=== PATIENT | male | born 1960 | race Caucasian/White ===

== ENCOUNTER 2018-11-04 12:12 | Emergency (ER) | payer OTHER ==
[~2018-11-04] VITALS: Ht 172.7 cm; Wt 81.7 kg
[2018-11-04 12:54] LABS: BASOPHILS ABSOLUTE AUTO 0.04 K/mm3 (0.00-0.23); BASOPHILS PERCENT AUTO 0 % (0-2); EOSINOPHILS ABSOLUTE AUTO 0.07 K/mm3 (0.00-0.68); EOSINOPHILS PERCENT AUTO 1 % (0-6); Hematocrit 46.8 % (37.0-53.0); Hemoglobin 15.6 g/dL (13.5-17.5); IMMATURE GRAN ABSOLUTE AUTO 0.03 K/mm3 (0.00-0.10); IMMATURE GRAN PERCENT AUTO 0 % (0-1); LYMPHOCYTES PERCENT AUTO 9 % (21-46); MONOCYTES ABSOLUTE AUTO 0.61 K/mm3 (0.16-1.47); MONOCYTES PERCENT AUTO 5 % (4-13); Mean Corpuscular HGB 28.6 pg (26.0-34.0); Mean Corpuscular HGB Conc 33.3 g/dL (31.5-36.5); Mean Corpuscular Volume 86 fL (80-100); Mean Platelet Volume 9.6 fL (9.1-12.4); NEUTROPHILS ABSOLUTE AUTO 9.94 K/mm3 (1.96-9.15); NEUTROPHILS PERCENT AUTO 84 % (41-73); Platelet Count 310 K/mm3 (150-400); RDW Coefficient Variation 12.8 % (11.7-14.2); RDW Standard Deviation 39.4 fL (35.1-46.3); Red Blood Cell Count 5.46 M/mm3 (4.30-5.90); White Blood Cell Count 11.79 K/mm3 (4.00-11.30)
[2018-11-04 13:09] LABS: Alanine Aminotransfer (ALT/SGP 15 U/L (12-78); Albumin, Blood 3.2 g/dL (3.4-5.0); Albumin/Globulin Ratio 0.7 (0.8-1.8); Alk Phos 88 U/L (50-136); Anion Gap 6 mmol/L (6-16); Aspartate Aminotrans (AST/SGOT 13 U/L (12-37); Bilirubin, Total 0.6 mg/dL (0.1-1.0); Blood Urea Nitrogen 12 mg/dL (8-24); Bun/Creatinine Ratio 11.7 (12.0-20.0); CO2, Blood 26 mmol/L (21-32); Calcium, Blood 8.7 mg/dL (8.5-10.1); Chloride, Blood 105 mmol/L (98-108); Creatinine, Blood 1.03 mg/dL (0.60-1.20); Globulin, Blood 4.4 g/dL (2.2-4.0); Glomerular Filtration Rate >60 (60-); Glucose, Blood 117 mg/dL (70-99); Potassium, Blood 4.3 mmol/L (3.5-5.5); Sodium, Blood 137 mmol/L (136-145); Total Protein, Blood 7.6 g/dL (6.4-8.2)
== END 2018-11-04 15:20 | disposition left against medical advice (07) ==
LOC: ER 12:12
PROVIDERS: Physician Assistant
DX: N13.2 Hydronephrosis with renal and ureteral calculous obstruction (principal); Z53.20 Procedure and treatment not carried out because of patient's decision for unspecified reasons
CPT/HCPCS: 36415; 74177; 80053; 83690; 85025; 96374; 96375; 99284-25; J1885; J2405; Q9967

== ENCOUNTER 2020-04-29 15:53 | Inpatient (IN) | payer OTHER ==
[~2020-04-29] VITALS: Ht 175.3 cm; Wt 79.4 kg
[2020-04-29 16:27] LABS: BASOPHILS ABSOLUTE AUTO 0.04 K/mm3 (0.00-0.23); BASOPHILS PERCENT AUTO 0 % (0-2); EOSINOPHILS ABSOLUTE AUTO 0.01 K/mm3 (0.00-0.68); EOSINOPHILS PERCENT AUTO 0 % (0-6); Hematocrit 40.8 % (37.0-53.0); Hemoglobin 13.3 g/dL (13.5-17.5); IMMATURE GRAN ABSOLUTE AUTO 0.13 K/mm3 (0.00-0.10); IMMATURE GRAN PERCENT AUTO 1 % (0-1); LYMPHOCYTES ABSOLUTE AUTO 1.37 K/mm3 (0.84-5.20); LYMPHOCYTES PERCENT AUTO 7 % (21-46); MONOCYTES ABSOLUTE AUTO 1.58 K/mm3 (0.16-1.47); MONOCYTES PERCENT AUTO 8 % (4-13); Mean Corpuscular HGB Conc 32.6 g/dL (31.5-36.5); Mean Corpuscular Volume 80 fL (80-100); Mean Platelet Volume 9.8 fL (9.1-12.4); NEUTROPHILS PERCENT AUTO 85 % (41-73); Platelet Count 460 K/mm3 (150-400); RDW Coefficient Variation 14.5 % (11.7-14.2); RDW Standard Deviation 41.7 fL (35.1-46.3); Red Blood Cell Count 5.12 M/mm3 (4.30-5.90); White Blood Cell Count 20.23 K/mm3 (4.00-11.30)
[2020-04-29 16:31] LABS: PCO2 Arterial 35.1 mmHg (35-45); PO2 Arterial 60.1 mmHg (80-100); pH Blood Arterial 7.47 (7.35-7.45)
[2020-04-29 16:40] LABS: Alanine Aminotransfer (ALT/SGP 27 U/L (12-78); Albumin, Blood 2.4 g/dL (3.4-5.0); Albumin/Globulin Ratio 0.4 (0.8-1.8); Alk Phos 122 U/L (50-136); Anion Gap 10 mmol/L (6-16); Aspartate Aminotrans (AST/SGOT 26 U/L (12-37); Bilirubin, Total 1.3 mg/dL (0.1-1.0); Blood Urea Nitrogen 17 mg/dL (8-24); Bun/Creatinine Ratio 14.3 (12.0-20.0); CO2, Blood 22 mmol/L (21-32); Calcium, Blood 9.6 mg/dL (8.5-10.1); Chloride, Blood 98 mmol/L (98-108); Creatinine, Blood 1.19 mg/dL (0.60-1.20); Globulin, Blood 5.7 g/dL (2.2-4.0); Glomerular Filtration Rate >60 (60-); Glucose, Blood 132 mg/dL (70-99); Potassium, Blood 3.8 mmol/L (3.5-5.5); Sodium, Blood 130 mmol/L (136-145); Total Protein, Blood 8.1 g/dL (6.4-8.2)
--- NOTE | 2020-04-29 23:15 | NUR ---
PATIENT IS A NEW ADMIT FROM THE ED. AOX X 4 AND SBA TRANSFER FROM W/C TO BED. BEDREST WITH BR PRIVLEDGES. DENIES PAIN AND N/V. ON 3L O2 NC AND RA BASELINE. REPORTS HE HASN'T EATEN FOR A FEW DAYS. LIVE BY SELF. ORIENTED TO ROOM AND CALL LIGHT SYSTEM. REPORTS HE WANTS TO WATCH TV. CALL LIGHT IN REACH.
--- NOTE | 2020-04-30 03:53 | NUR ---
SHIFT SUMMARY PATIENT HAD NO ACUTE CHANGES OBSERVED. AXOX 4 AND BEDREST WITH BATHROOM PRIVLEDGES. ON 3L O2 NC AND RA BASELINE. NEW HX OF LUNG CA. TAKES MEDICATION WHOLE WITH WATER. PIV REMAINS INTACT. DENIES PAIN AND N/V. REPORTS CEDS. VSS/AFEBRILE. CALL LIGHT IN REACH. BED IN LOWEST POSITION. WILL CONTINUE TO MONITOR UNTIL DAY SHIFT NURSE ASSUMES CARE.
[2020-04-30 05:02] LABS: BASOPHILS ABSOLUTE AUTO 0.05 K/mm3 (0.00-0.23); BASOPHILS PERCENT AUTO 0 % (0-2); EOSINOPHILS ABSOLUTE AUTO 0.11 K/mm3 (0.00-0.68); EOSINOPHILS PERCENT AUTO 1 % (0-6); Hematocrit 38.6 % (37.0-53.0); Hemoglobin 12.1 g/dL (13.5-17.5); IMMATURE GRAN ABSOLUTE AUTO 0.06 K/mm3 (0.00-0.10); IMMATURE GRAN PERCENT AUTO 0 % (0-1); LYMPHOCYTES ABSOLUTE AUTO 1.63 K/mm3 (0.84-5.20); LYMPHOCYTES PERCENT AUTO 12 % (21-46); MONOCYTES ABSOLUTE AUTO 0.92 K/mm3 (0.16-1.47); MONOCYTES PERCENT AUTO 7 % (4-13); Mean Corpuscular HGB 25.4 pg (26.0-34.0); Mean Corpuscular HGB Conc 31.3 g/dL (31.5-36.5); Mean Corpuscular Volume 81 fL (80-100); Mean Platelet Volume 9.7 fL (9.1-12.4); NEUTROPHILS ABSOLUTE AUTO 10.68 K/mm3 (1.96-9.15); NEUTROPHILS PERCENT AUTO 80 % (41-73); Platelet Count 384 K/mm3 (150-400); RDW Coefficient Variation 14.5 % (11.7-14.2); RDW Standard Deviation 42.8 fL (35.1-46.3); Red Blood Cell Count 4.76 M/mm3 (4.30-5.90); White Blood Cell Count 13.45 K/mm3 (4.00-11.30)
[2020-04-30 05:24] LABS: Anion Gap 5 mmol/L (6-16); Blood Urea Nitrogen 16 mg/dL (8-24); Bun/Creatinine Ratio 15.1 (12.0-20.0); CO2, Blood 30 mmol/L (21-32); Chloride, Blood 100 mmol/L (98-108); Creatinine, Blood 1.06 mg/dL (0.60-1.20); Glomerular Filtration Rate >60 (60-); Glucose, Blood 90 mg/dL (70-99); Potassium, Blood 3.6 mmol/L (3.5-5.5); Sodium, Blood 135 mmol/L (136-145)
--- NOTE | 2020-04-30 17:57 | NUR ---
SHIFT SUMMARY PT A/O X4; PLEASANT BUT CAN BE ANXIOUS AT TIMES. PT HAD AN EPISODE OF DYSPNEA THIS AM BUT HAS NOT C/O DYSPNEA SINCE. PULMONARY CONSULT CALLED. PT TO HAVE A BRONCOSCOPY WITH A BIOPSY TOMORROW. NPO AT MIDNIGHT AND AM LOVENOX IS TO BE HELD FOR THE PROCEDURE. VSS; PT GETTING IV ANTIBIOTICS, CALL LIGHT IN REACH.
[2020-05-01 04:11] LABS: Influenza A, PCR Negative (NEGATIVE); Influenza B, PCR Negative (NEGATIVE); Resp Syncytial Virus, PCR Negative (NEGATIVE); SARS-Cov-2 (COVID-19) PCR, MMC Negative (NEGATIVE)
--- NOTE | 2020-05-01 05:12 | NUR ---
SHIFT SUMMARY ASSUMED CARE OF PT AT 1900. PT IS A/OX4 BUT VERY ANXIOUS. PT HAD COUGHING FIT AFTER RETURNING FROM SMOKING, PT STATES HE ONLY HAD TWO PUFFS, RT CONSULTED WITH CARE BUT HE ALREADY HAD A BREATHING TREATMENT. PT SATURATIONS STAYED ABOVE 90% BUT NC WAS ADMINISTERED AT 2L DUE TO PT REQUEST. PT IS CONCERNED ABOUT INCREASED PULSE, STATING THIS IS NOT NORMAL FOR HIM. PT MENTIONED TO THIS NURSE ABOUT LEAVING AMA BEUCASE HE FELT THAT THE DOCTORS ARE NOT EXPLAINING THINGS TO HIM OR TAKING ANY TIME OUT OF THEIR DAY FOR HIM. PT WAS GIVEN A COVID TEST FOR PROCEDURE THIS AM. PT CALLED THIS NURSE BACK IN FOR HIS TEMP TO BE TAKEN AND SAID THAT HE THINGS HE WAS EXPOSED, TEST CAME BACK NEGATIVE BUT PT INSISTED TEMP SHOULD BE TAKEN, PT WORE HIS MASK DURING THE REST OF THE SHIFT. HEART SOUNDS TACHY, LUNG SOUNDS DIMINISHED IN L LUNG. NO ACUTE EVENTS DURING THE NIGHT. PT SLEPT A COUPLE HOURS DURING THE NIGHT. CALL LIGHT IN REACH, BED IN LWOWEST POSTION.
[2020-05-01 05:18] LABS: BASOPHILS ABSOLUTE AUTO 0.04 K/mm3 (0.00-0.23); BASOPHILS PERCENT AUTO 0 % (0-2); EOSINOPHILS PERCENT AUTO 1 % (0-6); Hematocrit 37.4 % (37.0-53.0); Hemoglobin 11.9 g/dL (13.5-17.5); IMMATURE GRAN ABSOLUTE AUTO 0.07 K/mm3 (0.00-0.10); IMMATURE GRAN PERCENT AUTO 1 % (0-1); LYMPHOCYTES ABSOLUTE AUTO 1.97 K/mm3 (0.84-5.20); LYMPHOCYTES PERCENT AUTO 14 % (21-46); MONOCYTES ABSOLUTE AUTO 0.94 K/mm3 (0.16-1.47); MONOCYTES PERCENT AUTO 7 % (4-13); Mean Corpuscular HGB Conc 31.8 g/dL (31.5-36.5); Mean Corpuscular Volume 82 fL (80-100); Mean Platelet Volume 9.6 fL (9.1-12.4); NEUTROPHILS PERCENT AUTO 77 % (41-73); Platelet Count 423 K/mm3 (150-400); RDW Coefficient Variation 14.6 % (11.7-14.2); RDW Standard Deviation 43.4 fL (35.1-46.3); Red Blood Cell Count 4.57 M/mm3 (4.30-5.90); White Blood Cell Count 13.92 K/mm3 (4.00-11.30)
[2020-05-01 05:32] LABS: International Normalized Ratio 0.98; Prothrombin Time Results 10.5 Sec (9.7-11.5)
[2020-05-01 05:42] LABS: Alanine Aminotransfer (ALT/SGP 22 U/L (12-78); Albumin/Globulin Ratio 0.4 (0.8-1.8); Alk Phos 142 U/L (50-136); Anion Gap 8 mmol/L (6-16); Aspartate Aminotrans (AST/SGOT 23 U/L (12-37); Bilirubin, Total 0.2 mg/dL (0.1-1.0); Blood Urea Nitrogen 18 mg/dL (8-24); Bun/Creatinine Ratio 17.5 (12.0-20.0); CO2, Blood 27 mmol/L (21-32); Calcium, Blood 8.4 mg/dL (8.5-10.1); Chloride, Blood 100 mmol/L (98-108); Creatinine, Blood 1.03 mg/dL (0.60-1.20); Globulin, Blood 5.5 g/dL (2.2-4.0); Glomerular Filtration Rate >60 (60-); Glucose, Blood 93 mg/dL (70-99); Potassium, Blood 3.3 mmol/L (3.5-5.5); Sodium, Blood 135 mmol/L (136-145); Total Protein, Blood 7.5 g/dL (6.4-8.2)
--- NOTE | 2020-05-01 12:59 | NUR ---
History, Chart, Medications and Allergies reviewed before start of procedure. Patient confirms NPO status and agrees with scheduled surgery. Pre-Op teaching done. Pt verbalizes understanding.
--- NOTE | 2020-05-01 13:34 | NUR ---
05/01/20 1334 Kerwin Holly History, Chart, Medications and Allergies reviewed before start of procedure.MONITOR INTACT WITH CONTINUOUS PULSE OXIMETRY AND INTERMITTENT BP.3-LEAD EKG REVIEWED WITH PHYSICIAN PRIOR TO START OF PROCEDURE.O2 VIA N/C INTACT THROUGHOUT SEDATION/PROCEDURE.
--- NOTE | 2020-05-01 14:18 | NUR ---
PATIENT CONTINUES TO COUGH UP THICK TINGE RED SECRETIONS. DR BALDERRAMA ORDERED DUO NEB AND WILL GET CHEST XRAY TO CHECK PNEUMO. XRAY COMPLETE, DR BALDERRAMA VERIFIED NO PEUMO. RA WITH SATS 87-88%, 02 3L/NC PLACED TO KEEP SATS >90%. WILL REPORT OFF TO FLOOR NURSE WITH PT'S POST STATUS.
--- NOTE | 2020-05-01 14:57 | NUR ---
PT LEFT FOR BRONCH AT 1215, RETURNED AT 245PM. REPORT RECEIVED FROM DWIGHT. INITIALLY VERY AGITATED, BUT REPOSITIONED IN BED AND NOW PT VERY SEDATED, BUT VSS ON 3L OXYGEN, WCTM
--- NOTE | 2020-05-01 15:14 | NUR ---
Met pt. in room coming back from test and tired , encouraged pt and offered prayers .
--- NOTE | 2020-05-01 17:23 | NUR ---
GAG REFLEX CHECKED AT 1700, IT IS PRESENT. PT SWALLOWING WELL POST GAG REFLEX CHECK
--- NOTE | 2020-05-01 18:50 | NUR ---
SHIFT SUMMARY GEENA HAD BRONCHOSCOPY THIS AFTERNOON. VSS SINCE RETURN BUT WAS LETHARGIC. HAS WOKEN UP WELL SINCE THEN, HAD DINNER AND FATHER VISITED. INDEP IN ROOM, ON 2L OXYGEN POST BRONCH. GOT ONE PRN DOSE NORCO FOR HEADACHE. TOOK MEDS PRESCRIBED, CALL LIGHT IN REACH, GIVING REPORT TO NIGHT NURSE
--- NOTE | 2020-05-01 19:56 | NUR ---
ADDENDUM: AT SHIFT CHANGE REPORT, PT VERY CONFUSED, DIFFICULT TO ROUSE AT FIRST. HAS TEMP OF 101.4. WHEN FULLY AWAKE, STATES HIS ABDOMEN AND HEAD ARE REALLY HURTING. UNABLE TO REMEMBER THAT HE IS IN A HOSPITAL. NIGHT NURSE GIVING TYLENOL FOR FEVER AND NORCO FOR PAIN. BED ALARM ON.
--- NOTE | 2020-05-01 20:41 | NUR ---
Patient very somnolent and difficult to wake during change of shift. He was disoriented to all but self which was a total change from earlier in the day when he was A&OX4 and independent in room. Temp was 101.4. VS otherwise stable. Patient eventually began to wake and move around in the bed. Alarm was set and patient instructed how to use call light and to call for assistance. Temp decreased to 99.8 after 2 Tylenol and one [place] for RUQ pain and headache. RUQ has positional "knot" that can be felt when patient moves a certain way or coughs. Hospitalist notified of all of above. No new orders. Will continue close observation
[2020-05-02 05:26] LABS: BASOPHILS ABSOLUTE AUTO 0.05 K/mm3 (0.00-0.23); BASOPHILS PERCENT AUTO 1 % (0-2); EOSINOPHILS PERCENT AUTO 3 % (0-6); Hematocrit 37.6 % (37.0-53.0); Hemoglobin 11.7 g/dL (13.5-17.5); IMMATURE GRAN ABSOLUTE AUTO 0.04 K/mm3 (0.00-0.10); IMMATURE GRAN PERCENT AUTO 0 % (0-1); LYMPHOCYTES ABSOLUTE AUTO 1.84 K/mm3 (0.84-5.20); LYMPHOCYTES PERCENT AUTO 19 % (21-46); MONOCYTES ABSOLUTE AUTO 0.72 K/mm3 (0.16-1.47); MONOCYTES PERCENT AUTO 8 % (4-13); Mean Corpuscular HGB 25.6 pg (26.0-34.0); Mean Corpuscular HGB Conc 31.1 g/dL (31.5-36.5); Mean Corpuscular Volume 82 fL (80-100); Mean Platelet Volume 9.5 fL (9.1-12.4); NEUTROPHILS ABSOLUTE AUTO 6.63 K/mm3 (1.96-9.15); NEUTROPHILS PERCENT AUTO 69 % (41-73); Platelet Count 452 K/mm3 (150-400); RDW Coefficient Variation 14.7 % (11.7-14.2); RDW Standard Deviation 44.4 fL (35.1-46.3); Red Blood Cell Count 4.57 M/mm3 (4.30-5.90); White Blood Cell Count 9.58 K/mm3 (4.00-11.30)
[2020-05-02 05:46] LABS: Alanine Aminotransfer (ALT/SGP 22 U/L (12-78); Albumin, Blood 1.9 g/dL (3.4-5.0); Albumin/Globulin Ratio 0.3 (0.8-1.8); Alk Phos 142 U/L (50-136); Anion Gap 7 mmol/L (6-16); Aspartate Aminotrans (AST/SGOT 16 U/L (12-37); Bilirubin, Total 0.1 mg/dL (0.1-1.0); Blood Urea Nitrogen 14 mg/dL (8-24); Bun/Creatinine Ratio 15.7 (12.0-20.0); CO2, Blood 27 mmol/L (21-32); Calcium, Blood 8.4 mg/dL (8.5-10.1); Chloride, Blood 104 mmol/L (98-108); Creatinine, Blood 0.89 mg/dL (0.60-1.20); Globulin, Blood 5.5 g/dL (2.2-4.0); Glomerular Filtration Rate >60 (60-); Glucose, Blood 170 mg/dL (70-99); Potassium, Blood 3.4 mmol/L (3.5-5.5); Sodium, Blood 138 mmol/L (136-145); Total Protein, Blood 7.4 g/dL (6.4-8.2)
--- NOTE | 2020-05-02 07:55 | NUR ---
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 Temp that was 101,5 at change of shift dropped to 100.1 after tylenol. Patient very fidgety and pushing to go out or at least down to vending machines. Aide to patient down to machines and patient was much more amiable after that. Patient has a tendency to gulp drinks and food. cough afterwards is dry and harsh.
--- NOTE | 2020-05-02 19:41 | NUR ---
END OF SHIFT SUMMARY: PATIENT RESTED IN BED THROUGHOUT THE DAY. PATIENT REPORTED PAIN IN HIS HEAD AND ANXIETY. DISCUSSED WITH DR. SANTA. NEW ORDERS RECEIVED. PATIENT MEDICATED ONCE WITH NEW PAIN MEDICATION AND ANTI-ANXIETY MEDICATION. PATIENT REPORTED SOME RELIEF WITH BOTH. PATIENT ABLE TO HAVE SOME UNINTERRUPTED REST TODAY. PATIENT DENIED SOB OR DIFFICULTY BREATHING AT REST. PATIENT REPORTED SOB WITH AMBULATION. PATIENT CONTINUES TO BE INDEPENDENT IN THE ROOM WITHOUT DIFFICULTY. PATIENT EXPRESSED CONCERN ABOUT HIS PROGNOSIS. PROVIDED SUPPORT AND ENCOURAGEMENT.
[2020-05-03 05:34] LABS: BASOPHILS ABSOLUTE AUTO 0.05 K/mm3 (0.00-0.23); BASOPHILS PERCENT AUTO 1 % (0-2); EOSINOPHILS ABSOLUTE AUTO 0.45 K/mm3 (0.00-0.68); EOSINOPHILS PERCENT AUTO 5 % (0-6); Hematocrit 39.5 % (37.0-53.0); Hemoglobin 11.9 g/dL (13.5-17.5); IMMATURE GRAN ABSOLUTE AUTO 0.07 K/mm3 (0.00-0.10); IMMATURE GRAN PERCENT AUTO 1 % (0-1); LYMPHOCYTES ABSOLUTE AUTO 1.92 K/mm3 (0.84-5.20); LYMPHOCYTES PERCENT AUTO 20 % (21-46); MONOCYTES ABSOLUTE AUTO 0.71 K/mm3 (0.16-1.47); MONOCYTES PERCENT AUTO 7 % (4-13); Mean Corpuscular HGB 24.8 pg (26.0-34.0); Mean Corpuscular HGB Conc 30.1 g/dL (31.5-36.5); Mean Corpuscular Volume 83 fL (80-100); Mean Platelet Volume 9.1 fL (9.1-12.4); NEUTROPHILS PERCENT AUTO 67 % (41-73); Platelet Count 470 K/mm3 (150-400); RDW Coefficient Variation 14.7 % (11.7-14.2); RDW Standard Deviation 44.7 fL (35.1-46.3); Red Blood Cell Count 4.79 M/mm3 (4.30-5.90)
--- NOTE | 2020-05-03 05:53 | NUR ---
SHIFT SUMMARY PATIENT ALERT AND ORIENTED. WAS MEDICATED PER EMAR FOR ANXIETY AND HEADACHE. PATIENT IS WITHDRAWN AND DEPRESSED AND EXPRESSED INTEREST IN WITH DIGNITY HE KNOWS THAT HIS SHORTNESS OF BREATH AND DIFFICULTY BREATHING IS ONLY GOING TO GET WORSE WITH HIS CANCER. THIS RN EXPLAINED TO THE PATIENT THAT IF HE WISHED TO DO THAT, THEN HE WOULD HAVE TO CONSULT WITH TWO PHYSICIANS TO ENSURE HE IS NOT MAKING A RASH DECISION. IV PATENT AND FLUSHED. BED IN LOWEST POSITION WITH WHEELS LOCKED. CALL LIGHT WITHIN REACH. REPORT GIVEN TO ONCOMING RN.
[2020-05-03 05:57] LABS: Alanine Aminotransfer (ALT/SGP 23 U/L (12-78); Albumin, Blood 2.1 g/dL (3.4-5.0); Albumin/Globulin Ratio 0.4 (0.8-1.8); Alk Phos 146 U/L (50-136); Anion Gap 7 mmol/L (6-16); Aspartate Aminotrans (AST/SGOT 25 U/L (12-37); Bilirubin, Total 0.1 mg/dL (0.1-1.0); Blood Urea Nitrogen 12 mg/dL (8-24); Bun/Creatinine Ratio 12.4 (12.0-20.0); CO2, Blood 26 mmol/L (21-32); Calcium, Blood 8.7 mg/dL (8.5-10.1); Chloride, Blood 107 mmol/L (98-108); Creatinine, Blood 0.97 mg/dL (0.60-1.20); Globulin, Blood 5.5 g/dL (2.2-4.0); Glomerular Filtration Rate >60 (60-); Glucose, Blood 153 mg/dL (70-99); Potassium, Blood 3.3 mmol/L (3.5-5.5); Sodium, Blood 140 mmol/L (136-145); Total Protein, Blood 7.6 g/dL (6.4-8.2)
--- NOTE | 2020-05-03 12:08 | NUR ---
Supportive visit this AM. Received call from bedside RN Tova and discussed case. Pt having emotional distress related to new diagnosis of lung cancer. Pt resting in bed upon arrival. Engaged in therapeutic listening as Pt expresses concerns. Listened as Pt discusses events leading up to this hospital stay. Pt expresses frustration regarding communication breakdown with PCP and office staff. Continued therapeutic listening and answered questions. Pt expresses fear of the unknown and states wanting to know options as soon as possible. Pt expresses appreciation of visit and requests for this RN to return for support when MD makes his rounds. Arrived back to Pt's room for joint visit with Dr Avila. Dr Avila discusses pathology report and plan for PET scan tomorrow and will discuss with oncology regarding appointment set up. Dr Avila answers questions and listens to concerns. Pt expresses concerns regarding his ability to walk only short distances before becoming SOB and concerns regarding his ability to negotiate steps to enter his home. Dr Avila will discuss concerns with [place] [employer] Yazmin to assist with resources. Pt reports no other concerns at this time. Palliative Care will remain available.
[2020-05-03] MEDS ORDERED: AZIT500 PO (17:17)
[2020-05-03] MEDS ORDERED: ALBU90OI INH (17:18)
[2020-05-03] MEDS ORDERED: AMOCLA875 PO (17:19)
--- NOTE | 2020-05-03 18:15 | NUR ---
PT AOX4 AND CAN BE VERY COOPERATIVE OR NOT COOPERATIVE DEPENDING ON HOW HE WANTED TO BEHAVE. PT DID DISCHARE AT 1815 WITH ALL PAPER WORK REVIEWED AND EDUCATIONAL MATERIAL SENT WITH PT. PT TREATED FOR PAIN PER EMAR. ALL PERSONAL BELONGINGS COLLECTED AND TRANSPORT ARRIVED TO TAKE PT HOME. O2 WAS BROUGHT TO PT'S ROOM PRIOR TO DISCHARGE. EARLIER TODAY PT HAD BEEN VERY UNHAPPY WITH THIS HARDWOOD SAWYER WHEN JUST BASIC TASKS WERE BEING DONE SUCH AM PILLS OR TREATING FOR PAIN. IV DID NOT FLUSH AND PT STATED THIS HARDWOOD SAWYER DID IT ON PURPOSE TO CAUSE HIM PAIN. LATER PT WANTED TO LEAVE ROOM IN WHEEL CHAIR AND STATED VERBALLY HE DID NOT BELIEVE IN HITTING WOMEN, BUT THIS HARDWOOD SAWYER WOULD BE FIRST ON HIS LIST IF HE DID. THIS HARDWOOD SAWYER DIDN'T ENGAGE ANY ANY OF THIS VERBAL NEGATIVITY. PT WOULD MULTIPLE TIMES APPOLIGIZE THEN DO IT ALL OVER AGAIN.PT WAS TREATED FOR ANXIETY, BUT NO EFFECT WAS NOTED.
[2020-05-06] MEDS ORDERED: ALBU90OI INH (03:49)
== END 2020-05-03 18:14 | disposition home or self-care (01) | DRG 871 ==
LOC: ER 15:53 → MEDS 19:00
PROVIDERS: Emergency Medicine; Family Medicine; Internal Medicine Pulmonary Disease; ADMIT Hospitalist
PROC: 3E02340 Introduction of Influenza Vaccine into Muscle, Percutaneous Approach (ICD-10-PCS; 2020-04-29)
PROC: 0BD28ZX Extraction of Carina, Via Natural or Artificial Opening Endoscopic, Diagnostic (ICD-10-PCS; 2020-05-01)
PROC: 0BDG4ZX Extraction of Left Upper Lung Lobe, Percutaneous Endoscopic Approach, Diagnostic (ICD-10-PCS; principal; 2020-05-01 13:00)
PROC: 0BDC4ZX Extraction of Right Upper Lung Lobe, Percutaneous Endoscopic Approach, Diagnostic (ICD-10-PCS; 2020-05-01 13:00)
DX: A41.9 Sepsis, unspecified organism (principal); J18.9 Pneumonia, unspecified organism; E87.1 Hypo-osmolality and hyponatremia; C34.02 Malignant neoplasm of left main bronchus; C78.1 Secondary malignant neoplasm of mediastinum; Z51.5 Encounter for palliative care; Z20.828 Contact with and (suspected) exposure to other viral communicable diseases; Z23 Encounter for immunization; F41.9 Anxiety disorder, unspecified; I10 Essential (primary) hypertension; Z99.81 Dependence on supplemental oxygen; Z87.891 Personal history of nicotine dependence; M54.2 Cervicalgia
CPT/HCPCS: 0241U; 36415; 36600; 71045; 71046; 72040; 80048; 80053; 82803; 83605; 85025; 85610; 85730; 87040; 87070; 87077; 87147; 87186; 87205; 88108; 88305; 88341; 88342; 93005; 93010; 94640; 94760; 94761; 96365; 96367; 97165; 97530; 99285-25; A9270; A9270-GY; J0171; J0456; J0696; J1885; J2001; J2250; J2704; J3010; J7050; J7120; Q2038

== ENCOUNTER 2020-05-21 07:30 | Emergency (ER) | payer OTHER ==
[~2020-05-21] VITALS: Ht 175.3 cm; Wt 81.0 kg
[~2020-05-21 07:30] MED LIST: ALBU90OI INH; AMOCLA875 PO; AZIT500 PO
[2020-05-21 08:05] LABS: BASOPHILS ABSOLUTE AUTO 0.06 K/mm3 (0.00-0.23); BASOPHILS PERCENT AUTO 1 % (0-2); EOSINOPHILS ABSOLUTE AUTO 0.26 K/mm3 (0.00-0.68); EOSINOPHILS PERCENT AUTO 2 % (0-6); Hematocrit 39.5 % (37.0-53.0); Hemoglobin 12.2 g/dL (13.5-17.5); IMMATURE GRAN PERCENT AUTO 1 % (0-1); LYMPHOCYTES ABSOLUTE AUTO 2.31 K/mm3 (0.84-5.20); LYMPHOCYTES PERCENT AUTO 20 % (21-46); MONOCYTES ABSOLUTE AUTO 0.76 K/mm3 (0.16-1.47); MONOCYTES PERCENT AUTO 7 % (4-13); Mean Corpuscular HGB 25.7 pg (26.0-34.0); Mean Corpuscular HGB Conc 30.9 g/dL (31.5-36.5); Mean Corpuscular Volume 83 fL (80-100); Mean Platelet Volume 9.7 fL (9.1-12.4); NEUTROPHILS PERCENT AUTO 70 % (41-73); Platelet Count 388 K/mm3 (150-400); RDW Coefficient Variation 15.8 % (11.7-14.2); RDW Standard Deviation 47.4 fL (35.1-46.3); Red Blood Cell Count 4.74 M/mm3 (4.30-5.90); White Blood Cell Count 11.49 K/mm3 (4.00-11.30)
[2020-05-21 08:29] LABS: Alanine Aminotransfer (ALT/SGP 26 U/L (12-78); Albumin, Blood 2.8 g/dL (3.4-5.0); Albumin/Globulin Ratio 0.6 (0.8-1.8); Alk Phos 101 U/L (50-136); Anion Gap 5 mmol/L (6-16); Aspartate Aminotrans (AST/SGOT 16 U/L (12-37); Bilirubin, Total 0.4 mg/dL (0.1-1.0); Blood Urea Nitrogen 16 mg/dL (8-24); Bun/Creatinine Ratio 17.9 (12.0-20.0); CO2, Blood 29 mmol/L (21-32); Calcium, Blood 8.7 mg/dL (8.5-10.1); Chloride, Blood 102 mmol/L (98-108); Creatinine, Blood 0.89 mg/dL (0.60-1.20); Globulin, Blood 4.4 g/dL (2.2-4.0); Glomerular Filtration Rate >60 (60-); Glucose, Blood 161 mg/dL (70-99); Sodium, Blood 136 mmol/L (136-145); Total Protein, Blood 7.2 g/dL (6.4-8.2); Troponin I <0.015 ng/mL (0.000-0.040)
[2020-05-21] MEDS ORDERED: Zithromax250 MG PO (09:48)
[2020-05-21] MEDS ORDERED: Roxicodone5 MG PO (09:48)
== END 2020-05-21 10:42 | disposition home or self-care (01) ==
LOC: ER 07:30
PROVIDERS: Emergency Medicine
DX: C34.01 Malignant neoplasm of right main bronchus (principal); C34.02 Malignant neoplasm of left main bronchus; I10 Essential (primary) hypertension; F17.210 Nicotine dependence, cigarettes, uncomplicated; Z79.899 Other long term (current) drug therapy; Z92.21 Personal history of antineoplastic chemotherapy; Z99.81 Dependence on supplemental oxygen
CPT/HCPCS: 36415; 71260; 80053; 84484; 85025; 93005; 93010; 96360; 99285-25; J7030; Q9967

== ENCOUNTER 2020-05-24 02:47 | Emergency (ER) | payer OTHER ==
[~2020-05-24] VITALS: Ht 175.3 cm; Wt 76.0 kg
[~2020-05-24 02:47] MED LIST changes: +Roxicodone5 MG PO; +Zithromax250 MG PO
[2020-05-24 03:21] LABS: BASOPHILS ABSOLUTE AUTO 0.01 K/mm3 (0.00-0.23); BASOPHILS PERCENT AUTO 0 % (0-2); EOSINOPHILS ABSOLUTE AUTO 0.01 K/mm3 (0.00-0.68); EOSINOPHILS PERCENT AUTO 0 % (0-6); Hematocrit 36.5 % (37.0-53.0); Hemoglobin 11.3 g/dL (13.5-17.5); IMMATURE GRAN ABSOLUTE AUTO 0.04 K/mm3 (0.00-0.10); IMMATURE GRAN PERCENT AUTO 1 % (0-1); LYMPHOCYTES ABSOLUTE AUTO 0.79 K/mm3 (0.84-5.20); LYMPHOCYTES PERCENT AUTO 9 % (21-46); MONOCYTES ABSOLUTE AUTO 0.38 K/mm3 (0.16-1.47); MONOCYTES PERCENT AUTO 4 % (4-13); Mean Corpuscular HGB 25.6 pg (26.0-34.0); Mean Corpuscular Volume 83 fL (80-100); Mean Platelet Volume 9.7 fL (9.1-12.4); NEUTROPHILS ABSOLUTE AUTO 7.36 K/mm3 (1.96-9.15); NEUTROPHILS PERCENT AUTO 86 % (41-73); Platelet Count 357 K/mm3 (150-400); RDW Coefficient Variation 15.9 % (11.7-14.2); RDW Standard Deviation 47.4 fL (35.1-46.3); Red Blood Cell Count 4.41 M/mm3 (4.30-5.90); White Blood Cell Count 8.59 K/mm3 (4.00-11.30)
[2020-05-24 03:36] LABS: Alanine Aminotransfer (ALT/SGP 39 U/L (12-78); Albumin, Blood 2.6 g/dL (3.4-5.0); Albumin/Globulin Ratio 0.6 (0.8-1.8); Alk Phos 100 U/L (50-136); Anion Gap 5 mmol/L (6-16); Aspartate Aminotrans (AST/SGOT 38 U/L (12-37); Bilirubin, Total 0.4 mg/dL (0.1-1.0); Blood Urea Nitrogen 25 mg/dL (8-24); Bun/Creatinine Ratio 28.9 (12.0-20.0); CO2, Blood 30 mmol/L (21-32); Calcium, Blood 8.2 mg/dL (8.5-10.1); Chloride, Blood 101 mmol/L (98-108); Creatinine, Blood 0.87 mg/dL (0.60-1.20); Globulin, Blood 4.4 g/dL (2.2-4.0); Glomerular Filtration Rate >60 (60-); Glucose, Blood 148 mg/dL (70-99); Potassium, Blood 4.2 mmol/L (3.5-5.5); Sodium, Blood 136 mmol/L (136-145); Troponin I <0.015 ng/mL (0.000-0.040)
[2020-05-24] MEDS ORDERED: XOPENEX1.25 MG/1 INH (21:37)
== END 2020-05-24 05:19 | disposition home or self-care (01) ==
LOC: ER 02:47
PROVIDERS: Emergency Medicine
DX: C34.90 Malignant neoplasm of unspecified part of unspecified bronchus or lung (principal); R06.02 Shortness of breath; Z79.899 Other long term (current) drug therapy; Z87.891 Personal history of nicotine dependence
CPT/HCPCS: 36415; 80053; 83880; 84484; 85025; 93005; 93010; 99285-25

== ENCOUNTER 2020-05-24 17:24 | Inpatient (IN) | payer OTHER ==
[~2020-05-24] VITALS: Ht 175.3 cm; Wt 82.4 kg
[2020-05-24 18:27] LABS: BASOPHILS ABSOLUTE AUTO 0.01 K/mm3 (0.00-0.23); BASOPHILS PERCENT AUTO 0 % (0-2); EOSINOPHILS PERCENT AUTO 0 % (0-6); IMMATURE GRAN ABSOLUTE AUTO 0.04 K/mm3 (0.00-0.10); IMMATURE GRAN PERCENT AUTO 0 % (0-1); LYMPHOCYTES ABSOLUTE AUTO 0.54 K/mm3 (0.84-5.20); LYMPHOCYTES PERCENT AUTO 6 % (21-46); MONOCYTES PERCENT AUTO 4 % (4-13); Mean Corpuscular HGB 25.8 pg (26.0-34.0); Mean Corpuscular HGB Conc 30.8 g/dL (31.5-36.5); Mean Corpuscular Volume 84 fL (80-100); Mean Platelet Volume 9.7 fL (9.1-12.4); NEUTROPHILS ABSOLUTE AUTO 8.52 K/mm3 (1.96-9.15); NEUTROPHILS PERCENT AUTO 90 % (41-73); Platelet Count 357 K/mm3 (150-400); RDW Coefficient Variation 15.9 % (11.7-14.2); RDW Standard Deviation 47.8 fL (35.1-46.3); Red Blood Cell Count 4.65 M/mm3 (4.30-5.90); White Blood Cell Count 9.51 K/mm3 (4.00-11.30)
[2020-05-24 18:40] LABS: Alanine Aminotransfer (ALT/SGP 46 U/L (12-78); Albumin, Blood 2.9 g/dL (3.4-5.0); Albumin/Globulin Ratio 0.6 (0.8-1.8); Alk Phos 107 U/L (50-136); Anion Gap 7 mmol/L (6-16); Aspartate Aminotrans (AST/SGOT 48 U/L (12-37); Bilirubin, Total 0.4 mg/dL (0.1-1.0); Blood Urea Nitrogen 27 mg/dL (8-24); Bun/Creatinine Ratio 25.2 (12.0-20.0); CO2, Blood 28 mmol/L (21-32); Calcium, Blood 8.6 mg/dL (8.5-10.1); Chloride, Blood 99 mmol/L (98-108); Creatinine, Blood 1.07 mg/dL (0.60-1.20); Globulin, Blood 4.6 g/dL (2.2-4.0); Glomerular Filtration Rate >60 (60-); Glucose, Blood 120 mg/dL (70-99); Potassium, Blood 4.3 mmol/L (3.5-5.5); Sodium, Blood 134 mmol/L (136-145); Total Protein, Blood 7.5 g/dL (6.4-8.2)
[2020-05-24 21:30] LABS: Bicarbonate Venous 24.3 mmol/L (24.0-30.0); PCO2 Venous 68.1 mmHg (38-42); PO2 Venous 36.1 mmHg (38-42); pH Blood Venous 7.24 (7.34-7.37)
[2020-05-24] MEDS ORDERED: XOPENEX1.25 MG/1 INH (21:37)
[2020-05-24 22:47] LABS: Source, Urine Clean Catch
[2020-05-24 22:49] LABS: Bilirubin, Urine Neg (Neg); Blood, Urine 3+ (Neg); Glucose Qualitative, Urine Neg (Neg); Ketones, Urine 1+ (Neg); Leukocyte Esterase, Urine Neg (Neg); Nitrite, Urine Neg (Neg); Protein, Urine 3+ (Neg); Urobilinogen, Urine NORM (Normal)
[2020-05-24 22:55] LABS: Appearance, Urine Hazy (Clear); Color, Urine Yellow (P-Yellow)
[2020-05-24 22:56] LABS: Amorphous Heavy (0-Heavy); Bacteria Rare /hpf; Red Blood Cells, Urine 0-2 /hpf (0-2); Squamous Epithelial Cells Not Seen /hpf (Few); Uric Acid Crystals Few /hpf; White Blood Cells, Urine Rare /hpf (0-5)
--- NOTE | 2020-05-25 | NUR ---
PT TO ICU 9 VIA GURNEY WITH ED RN AND RT. PT INTUBATED AND SEDATED WITH PROPOFOL. PT PLACED ON VENT SET TO AC/VC 14/500 PEEP 5 FIO2 60%. PT BECAME VERY AGITATED WITH TRANSFER, THRASHING EXTREMETIES, SITTING UP IN BED, REACHING FOR ETT, NOT REDIRECTABLE. PROPOFOL TITRATED, ATIVAN ADMINISTERED AND BILAT SOFT WRIST RESTRAINTS PLACED. MONITOR SHOWS SINUS RHYTHM WITH HR 100-120, PT HYPOTENSIVE. EXTREMETIES COOL WITH POOR CAP REFILL. OG IN PLACE TO LIS, GREEN BILE OUTPUT. FOELY IN PLACE DRAINING CLOUDY YELLOW URINE. MARICHUY STEPHEN ABRASIVE SAWYER TO BEDSIDE AT 0000.
[2020-05-25 00:30] LABS: Adenovirus Not Detected (NOT DETECT); Bordetella pertussis Not Detected (NOT DETECT); Chlamydophila pneumoniae Not Detected (NOT DETECT); Coronavirus 229E Not Detected (NOT DETECT); Coronavirus HKU1 Not Detected (NOT DETECT); Coronavirus NL63 Not Detected (NOT DETECT); Coronavirus OC43 Not Detected (NOT DETECT); Human Metapneumovirus Not Detected (NOT DETECT); Human Rhinovirus/Enterovirus Not Detected (NOT DETECT); Influenza A/2009-H1 Not Detected (NOT DETECT); Influenza A/H1 Not Detected (NOT DETECT); Influenza A/H3 Not Detected (NOT DETECT); Influenza B Not Detected (NOT DETECT); Mycoplasma pneumoniae Not Detected (NOT DETECT); Parainfluenza Virus 1 Not Detected (NOT DETECT); Parainfluenza Virus 2 Not Detected (NOT DETECT); Parainfluenza Virus 3 Not Detected (NOT DETECT); Parainfluenza Virus 4 Not Detected (NOT DETECT); Respiratory Syncytial Virus Not Detected (NOT DETECT); SARS-Cov-2 (COVID-19), BioFire Not Detected (NOT DETECT)
[2020-05-25 03:42] LABS: BASOPHILS ABSOLUTE AUTO 0.01 K/mm3 (0.00-0.23); BASOPHILS PERCENT AUTO 0 % (0-2); EOSINOPHILS ABSOLUTE AUTO 0.03 K/mm3 (0.00-0.68); EOSINOPHILS PERCENT AUTO 0 % (0-6); Hematocrit 32.4 % (37.0-53.0); IMMATURE GRAN ABSOLUTE AUTO 0.03 K/mm3 (0.00-0.10); IMMATURE GRAN PERCENT AUTO 0 % (0-1); LYMPHOCYTES ABSOLUTE AUTO 1.23 K/mm3 (0.84-5.20); LYMPHOCYTES PERCENT AUTO 16 % (21-46); MONOCYTES ABSOLUTE AUTO 0.26 K/mm3 (0.16-1.47); MONOCYTES PERCENT AUTO 3 % (4-13); Mean Corpuscular HGB Conc 30.9 g/dL (31.5-36.5); Mean Corpuscular Volume 84 fL (80-100); Mean Platelet Volume 9.6 fL (9.1-12.4); NEUTROPHILS PERCENT AUTO 80 % (41-73); Platelet Count 260 K/mm3 (150-400); RDW Coefficient Variation 16.1 % (11.7-14.2); Red Blood Cell Count 3.84 M/mm3 (4.30-5.90); White Blood Cell Count 7.86 K/mm3 (4.00-11.30)
[2020-05-25 04:01] LABS: Anion Gap 5 mmol/L (6-16); Blood Urea Nitrogen 22 mg/dL (8-24); Bun/Creatinine Ratio 25.3 (12.0-20.0); CO2, Blood 30 mmol/L (21-32); Calcium, Blood 7.4 mg/dL (8.5-10.1); Chloride, Blood 105 mmol/L (98-108); Creatinine, Blood 0.87 mg/dL (0.60-1.20); Glomerular Filtration Rate >60 (60-); Glucose, Blood 105 mg/dL (70-99); Potassium, Blood 4.2 mmol/L (3.5-5.5); Sodium, Blood 140 mmol/L (136-145)
[2020-05-25 05:02] LABS: PCO2 Arterial 45.5 mmHg (35-45); pH Blood Arterial 7.42 (7.35-7.45)
--- NOTE | 2020-05-25 06:32 | NUR ---
SHIFT SUMMARY PT REMAINS INTUBATED AND SEDATED, VENT SET TO AC/PC 14/500 PEEP 5 FIO2 40-60%. LEFT LUNG SOUND REMAIN EXTREMELY DIMINISHED AND ABSENT IN THE BASE. ETT CONTINUES TO HAVE THIN DORIS BLOOD WITH SUCTIONING. SEDATION WAS TITRATED TO PROPOFOL @ 10mcg/kg/min AND PRECEDEX TO 0.4mcg/kg/hr WITH PT TOLERATING VENT AND RESPONSIVE TO PAINFUL STIMULI, PT NOT RESPONSIVE TO VERBAL STIMULI. WITH AM TURN, PT WAS COUGHING- BUT TOLERATING- VENT, PT WAS SUCTIONED PER ETT AND PT BECAME VERY AGITATED, THRASHING EXTREMETIES, SITTING UP IN BED, PULLING AT WRIST RESTRAINTS, COUGHING VENT WITH DESATURATIONS TO LOW 80'S AND HYPERTENSION WITH SBP 170'S-180'S. PROPOFOL TITRATED TO 25, PRECEDEX TO 0.7, LEVO PLACED ON SB AND 2mg ATIVAN ADMINISTERED. PT VERY SLOW TO RELAX/RECOVERY. SEE FLOWSHEET FOR GTT TITRATIONS. LEVOPHED INFUSING THROUGH PERIPHERAL LAC IV, SEE IV ASSESSMENTS, IV REMAINS PATENT WITH BLOOD RETURN ON EACH ASSESSMENT. OG IN PLACE TO LIS, 100ml GREEN BILE OUTPUT. GOMES IN PLACE WITH 850ml URINE OUTPUT. NO BM THIS SHIFT.
--- NOTE | 2020-05-25 07:15 | NUR ---
Assumed care of pt at 0700. Beside report received from Carmel SCHRADER. Pt sedated with 25 mcg/kg/min propofol and 0.7 mcg/kg/hr precedex. Pt ventilated via 8.0 cm ETT, 24 cm SUSHIL. Settings ACVC 14/500/5/50%. SpO2 90% or greater. Pt's acutal RR is 18. SR per monitor. BP stable with 3 mcg/min levophed. De La Vega catheter patent and draining clear yellow urine. OG tube to low intermittent suction with bile drainage.
--- NOTE | 2020-05-25 08:00 | NUR ---
Ativan given and propofol increased due to pt agitation. Pt became agitated with oral care. Alert. Opening eyes spontaneously but not following commands. Pt pulling on restraints. Sitting up in bed. Kicking legs, hitting bedside table. Attempting to move legs over edge of bed. Behavior resolved when sedation increased.
--- NOTE | 2020-05-25 12:45 | NUR ---
Went to visit with John in the ICU. He is currently intubated and sedated. Assisted nursing to turn him back onto his left side as he was desatting shortly after being turned to his right side. Spoke with Dr. Franco who states he has not spoken with John's parents. Spoke with Dr. Mejía who states she spoke with pt's mother, Ashly and told Ashly that PC nurse would contact them. Chart reviewed. Will plan to speak with John's parents to establish a rapport and answer any questions that they may have after speaking with Dr. Mejía.
--- NOTE | 2020-05-25 13:21 | NUR ---
ADMIT: 05/24/20 DISCHARGE: DX:Acute respiratory failure with hypoxia ADMIT: 05/06/20 DISCHARGE: 05/07/20 LEFT AMA DX: DYSPNEA, LUNG CA ADMIT: 04/29/20 DISCHARGE: 05/03/20 DX: OBSTRUCTIVE PNEUMONIA CC: EUGENE CALL: CALL GEENA AT HOME FOR EUGENE RESIDENCE: HOME- UPSTAIRS, 20+ STEPS TO CLIMB. CAREGIVER: MOBILE: ALTERNATIVE DECISION MAKER: FATHER, [place] [phone] DX: PRIMARY MALIGNANT NEOPLASM OF LUNG, dyspnea, HTN, see list DME: nebulizer, oxygen concentrator CCM: none HOME HEALTH: not homebound SUMMARY: Admit: 05/24/20 05/25/20- Per chart review with Dr. Franco, pt is intubated with poor prognosis. No est ETA for d/c. Per review of chart, pt received treatment by Dr. Rizo on 05/14/20 & 05/22/20. Dr. Rizo has consulted on pt while in ICU. He stated that pt had bizarre behavior at his previous treatments, accusing staff of stealing from him, pulling IV, combative and aggressive behavior. Dr. Rizo did stated that he feels that pt has a poor prognosis and his treatment is not approv 1: Acute respiratory failure with hypoxia and hypercapnia A/P: Patient in extreme respiratory distress on my exam and anxious. I increased O2 and rubbed his back wich he said helped a lot. He was still using all accessory muscles with respiratory rate in the 40s, tachycardic at 140s-150s and extremely anxious. I ordered Ativan 2 mg IV stat which greatly improved his symptoms. He was able to relax but was still using all accessory muscles and becoming fatigued. His blood gas shows hypoxia and hypercapnea. I then requested the ED MD intubate the pateint before transfering him to the ICU. - VAP bundle - Pulmonology consult - ABG once settled in ICU and in AM 2: Squamous cell lung cancer A/P: Patient had prior broncoscopy and biopsy, he has started chemotherapy, last dose was 2 days ago, he does not remember the name of the drug. - Oncology consult - Pulmonology consult - Palliative care consult 3: Obstructive pneumonia A/P: - Procalcitonin add to labs - Ceftriazone and Azithromycin 4: DVT prophylaxis A/P: High risk due to cancer, intubation, and obstruction of pulmonary arteries. - Lovenox 1 mg/kg twice daily Per review of chart, pt received treatment by Dr. Rizo on 05/14/20 & 05/22/20. Dr. Rizo has consulted on pt while in ICU. He stated that pt had bizarre behavior at his previous treatments, accusing staff of stealing from him, pulling IV, combative and aggressive behavior. Dr. Rizo did stated that he feels that pt has a poor prognosis and his treatment is not approved as inpt treatment and pt would have to be extubated and ambulate to infusion clinic on 05/29/20. -ino
--- NOTE | 2020-05-25 14:01 | NUR ---
Sedation stable with 45 mcg/kg/min propofol and 0.7 mcg/kg/hr precedex. Pt synchronous with ventilator. Cough and gag present. Responsive to painful stimulus. Tolerating repositioning and oral care without becoming agitated and fighting ventilator as he did this morning. Pt however does not tolerate repositioning on right side; this results in SpO2 drop to low 80s with no recovery- no coughing or fighting of ventilator noted, simply unable to maintain SpO2. HR 86, sinus rhythm. BP stable with 3 mcg/min levophed.
--- NOTE | 2020-05-25 14:24 | NUR ---
Called John's parents, Hema and Ashly and was able to speak to both of them on the phone together. Answered their questions. Ashly states that the doctors have told them that John will be on a machine to assist with his breathing for a few days until he is taken off and placed on medicines to keep him comfortable until he dies. She is asking when this will happen. Explained to both of them that they would be involved in making this decision that the doctors would not just extubate him to comfort care without talking to them first and having them (Hema and Ashly) make that decision. Hema states that they have had a little conversation with John about what he would want if he was unable to make decisions for himself. Hema states that he knows John would not want to suffer. John wishes to be cremated. John's diagnosis of lung cancer came in April after a lengthy illness. He received his first round of chemo (two doses on 05/14/20 and 05/22/20) and then was admitted to [facility]. Discussed progress notes and conversation this casualty underwriter had with Dr. Mejía with [facility]. Also discussed Dr. Rizo's consult notes. At this time [facility] would like to continue with supportive treatments for his pneumonia and to continue with the ventilator support. They would like to give John a few days to see if the chemotherapy treatments he received will have any benefit. They are open to comfort care for John in the hospital if he has no improvement in the next couple days or if his conditions worsens. Discussed code status options and they are agreeable to make him a DNR but to have him remain on vent support for a few days. [facility] requested to be notified for any changes in John's condition. Their home phone is: [phone] and Ashly's cell: [phone]. They would like to hop picker John's belongings when they come in to visit him. Their are not planning to come to visit today. "We don't just want to sit by his bed and weep." Emotional support given. Will call MD for a code status order change. PC to continue to follow.
--- NOTE | 2020-05-25 18:18 | NUR ---
SUMMARY At this time, pt remains sedated with 45 mcg/kg/min propofol and 0.7 mcg/kg/hr precedex. Cough and gag present. Ventilator compliant. Settings AC 14/500//45. SpO2 97%. Minimal secretions from ETT. Excellent urine output. Levophed at 2 mcg/min, running peripherally. BP stable. HR 75 at this time. Will continue to closely monitor until care handoff and bedside report with oncoming RN.
--- NOTE | 2020-05-25 20:11 | NUR ---
ASSUMED CARE OF PT AT 1915. REPORT RECEIVED AT BEDSIDE. PT PRESENTS IN BED. VENTED -AC 14, Tv 500, FIO2 40%, PEEP 5. PT TOLERATING VENT WELL AT THIS TIME. PT ON LEVOPHED AT 2 MCG'S. MAP > 60. WILL REVIEW CHART AND PLAN OF CARE FOR THIS PT.
[2020-05-26 04:29] LABS: BASOPHILS PERCENT AUTO 0 % (0-2); EOSINOPHILS ABSOLUTE AUTO 0.14 K/mm3 (0.00-0.68); EOSINOPHILS PERCENT AUTO 2 % (0-6); Hematocrit 33.3 % (37.0-53.0); Hemoglobin 10.1 g/dL (13.5-17.5); IMMATURE GRAN ABSOLUTE AUTO 0.03 K/mm3 (0.00-0.10); IMMATURE GRAN PERCENT AUTO 1 % (0-1); LYMPHOCYTES ABSOLUTE AUTO 0.94 K/mm3 (0.84-5.20); LYMPHOCYTES PERCENT AUTO 16 % (21-46); MONOCYTES ABSOLUTE AUTO 0.21 K/mm3 (0.16-1.47); MONOCYTES PERCENT AUTO 4 % (4-13); Mean Corpuscular HGB 25.8 pg (26.0-34.0); Mean Corpuscular HGB Conc 30.3 g/dL (31.5-36.5); Mean Corpuscular Volume 85 fL (80-100); Mean Platelet Volume 9.8 fL (9.1-12.4); NEUTROPHILS ABSOLUTE AUTO 4.72 K/mm3 (1.96-9.15); NEUTROPHILS PERCENT AUTO 78 % (41-73); Platelet Count 218 K/mm3 (150-400); RDW Coefficient Variation 16.6 % (11.7-14.2); RDW Standard Deviation 50.9 fL (35.1-46.3); Red Blood Cell Count 3.92 M/mm3 (4.30-5.90); White Blood Cell Count 6.04 K/mm3 (4.00-11.30)
[2020-05-26 04:45] LABS: Anion Gap 6 mmol/L (6-16); Blood Urea Nitrogen 13 mg/dL (8-24); Bun/Creatinine Ratio 14.6 (12.0-20.0); CO2, Blood 30 mmol/L (21-32); Calcium, Blood 7.6 mg/dL (8.5-10.1); Chloride, Blood 110 mmol/L (98-108); Creatinine, Blood 0.89 mg/dL (0.60-1.20); Glomerular Filtration Rate >60 (60-); Glucose, Blood 88 mg/dL (70-99); Potassium, Blood 4.1 mmol/L (3.5-5.5); Sodium, Blood 146 mmol/L (136-145)
--- NOTE | 2020-05-26 05:21 | NUR ---
ATTEMPTED SEDATION VACATION THIS AM. DECREASED PROPOFOL INITIALY TO 10 MCG'S/KG AND LEFT PRECEDEX AT 0.7MCG'S. UNFORTUNATELY AFTER APPROX 20 MINUTES, PT BECOMES VERY AWAKE, AND THRASHING ABOUT BED. HE MAKES ATTEMPTS TO SIT UPRIGHT IN BED. WITH THIS, HE BEGINS TO TRY AND GET OUT OF BED. WILL NOT FOLLOW COMMANDS. TRIES TO GET AHOLD OF HIS ETT. MULTIPLE ATTEMPTS TO CALM PT UNSUCCESSFUL. DID RESTART PROPOFOL AT 45 MCG'S. PT CURRENTLY RESTING IN BED. LEVOPHED HAS BEEN DECREASED TO 1 MCG AND THIS DROPS PT'S BLOOD PRESSURE. WILL RETURN RATE TO 2 MCG'S/KG/MIN. WILL CONITNUE TO CLOSELY MONITOR PT FOR ABILITY TO TITRATE LEVOPHED LOWER. HAVE SUCTIONED PT WITH RETURN OF LIGHT ROSE COLORED SECRETIONS FROM ETT. PT WILL DESATURATE WITH TURNS, ACTIVITIES, AND SUCTIONING. WILL PRE LOAD PT WITH 100 % FIO2 WHICH HAS BEEN AFFECTIVE IN KEEPING SATURATIONS > 90 PERCENT. WILL CONTINUE TO MONITOR PT, AND WILL REPORT OFF TO ONCOMING RN.
--- NOTE | 2020-05-26 07:15 | NUR ---
BEGINNING OF SHIFT Assumed care of pt at 0700. Bedside report received from Axel SCHRADER. Pt sedated with 45 mcg/kg/min propofol and 0.7 mcg/kg/hr precedex. Ventilated via 8.0 cm ETT, 24 cm SUSHIL. Vent settings AC 14/500/5/45%. SpO2 90% or greater. Small amount of thin clear sections through ETT. No breath sounds on left side. Clear breath sounds on right side. OG to LIS with bile drainage. De La Vega catheter draining clear yellow urine. Afebrile per core temp probe.
--- NOTE | 2020-05-26 09:52 | NUR ---
EKG obtained due to possible T wave inversion in lead II on telemetry. EKG obtained. Discussed with Dr Mejía. Plan to obtain troponin and echo.
--- NOTE | 2020-05-26 12:30 | NUR ---
Echocardiogram performed.
--- NOTE | 2020-05-26 13:20 | NUR ---
Phelbitis noted to right forearm. Unclear if from hand IV or forearm IV. Both IVs removed and meds given through 18 ga IV to left forearm while Ryley placed PICC line per orders from Dr Mejía. Dr Mejía aware of phlebitis. No infilatration noted to IV. While meds switched from peripheral IV, brief interruption in sedation occurred which resulted in pt agitation. Pt alert, opening eyes spontaneously. Not following commands. Pulling against restraints towards ETT tube. Ativan given which resolved agitation.
--- NOTE | 2020-05-26 15:31 | NUR ---
Patient's mother and father are at pt's bedside, visiting. Palliative care RN, Rosalia in room and Dr Franco in room. Sedation remains at 45 mcg/kg/min propofol and 0.7 mcg/kg/hr precedex. Levophed at 3 mcg/min. Vent settings AC 14/500/5/45%. SpO2 90% or greater.
--- NOTE | 2020-05-26 16:18 | NUR ---
Called to ICU as [facility] have arrived to visit with John and requested a visit from the PC nurse. John remains sedated on a ventilator. He becomes aggitated when the sedation is lightened. Emotional support given to Hema and Ashly. Spent time explaining current health issues, equipment and what types of IV lines/meds John has running. Answered their questions. Dr. Franco visited during my visit and updated John's parents on his condition. They are tearful and are overwhelmed by the sudden decline in John's health and new diagnosis and chemo over the past couple of weeks. Ashly is a cancer survivor and stated that she figured that John would get chemo and get better. She states "Our children are not supposed to go before us." Emotional support given. Betsy remain hopeful that John will show some signs of improvement, however they are starting to make comments that they are starting to understand that he will likely not survive this event. They have 3 other adult children living in the state that they have as support. PC will continue to follow for support and asssitance with advanced care planning. Plan is to continue with treatments through the weekend. It may be helpful for Dr. Rizo to visit with [facility]ets[facility] on Thursday as they have a rapport with him as John's cancer MD. Nursing updated.
--- NOTE | 2020-05-26 18:40 | NUR ---
SUMMARY Pt remains sedated with 45 mcg/kg/min propofol and 0.7 mcg/kg/hr precedex. Vent settings AC 14/500/5/45%. SpO2 90% or greater. Levophed at 2 mcg/min. Attempted to titrate down but unsuccessful. PICC line placed to GUICHO for vasopressors. No additional changes this shift.
--- NOTE | 2020-05-26 20:00 | NUR ---
ASSUMED CARE OF PT AT 1915. REPORT RECEIVED AT BEDSIDE. PT PRESENTS IN BED. VENTED - AC 14, Tv 500, FIO2 45, PEEP 5. NOTED ETT SECRETIONS WITH BLOOD. LUNGS WITH MINIMAL AIR MOVEMENT IN UPPER LEFT LUNG. DECREASED WITH WHEEZE IN LEFT MID. ABSENT SOUND IN BASE LEFT. VERY FAINT END-EXPIRATORY SQUEEK IN BASE OF LEFT. RIGHT LUNG WITH INSPIRATORY WHEEZE WITH COARSENESS. DIMINISHED IN BASE. PT WITH TEMP OF 100.2 PER GOMES TEMP PROBE. PT AWAKENS VERY EASILY AND BECOMES VERY AGITATED AND WHAT APPEARS TO BE PANIC.
--- NOTE | 2020-05-26 23:08 | NUR ---
CALL MADE TO PT'S MOTHER AND FATHER WITH UPDATE ON PT'S CHANGES. THEY HAVE OPTED TO COMES SEE PT TONIGHT AND ARE IN ROOM. DISCUSSED PT'S CURRENT STATUS. AT THIS TIME. CIRCUIT FROM VENT CHANGED PRIOR TO PARENT'S ARRIVAL SECONDARY TO BLOOD IN LINES. PROPOFOL HAS BEEN INCREASED TO 60 MCG'S. FIO2 TO 60 % AND 50 MCG FENTANYL GIVEN TO PT FOR COMFORT. LEVOPHED ON AT 1 MCG. PARENTS HAVE DISCUSSED THAT IT IS VERY IMPORTANT TO THEM FOR PT TO BE COMFORTABLE AND NOT TO STRUGGLE. NO DECISIONS TO MAKE PATIENT FULL COMFORT MEASURES AT THIS TIME. THEY STATED THEY WOULD LIKE BULLDOZER OPERATOR VISIT DURING THE DAY. WILL MAKE THE ARRANGEMENTS. WILL CONTINUE TO MONITOR PT.
--- NOTE | 2020-05-27 00:56 | NUR ---
PT'S PARENTS HAVE LEFT FOR THE NIGHT. WAS INFORMED BY RESPIRATORY CARE THAT THERE WAS FOUND LARGE CLOT-LIKE PIECE WITHIN CIRCUIT LINE THAT PT HAD EXPECTORATED. HAVE BEEN ABLE TO START BRINGING FIO2 LOWER. FROM 60 % NOW TO 55 %. WILL EVALUATE ABILITY TO TITRATE LOWER. PT TOLERATING VENT WELL AT THIS TIME. PROPOFOL AT 55 MCG'S. LEVOPHED AT 1 MCG. WILL CONTINUE TO MONTIOR.
--- NOTE | 2020-05-27 04:03 | NUR ---
SINCE PT HAD PASSED AIRWAY PLUG, HIS FIO2 HAS BEEN ABLE TO BE TITRAED BACK FROM 60% TO 40%. OXYGEN SATURATIONS REMAIN 89-92%. PROPOFOL AT 55 MCG'S/KG/MIN. PRECEDEX REMAINS AT 0.7MCG'S/KG/HOUR. LEVOPHED AT 1 MCG. TEMPERATURE AT 99.3 WITH USE OF PERSONAL FAN. PT MUCH MORE COMFORTABLE IN NO APPARENT DISTRESS AT THIS TIME.
[2020-05-27 04:38] LABS: BASOPHILS ABSOLUTE AUTO 0.01 K/mm3 (0.00-0.23); BASOPHILS PERCENT AUTO 0 % (0-2); EOSINOPHILS PERCENT AUTO 0 % (0-6); Hemoglobin 10.2 g/dL (13.5-17.5); IMMATURE GRAN ABSOLUTE AUTO 0.04 K/mm3 (0.00-0.10); IMMATURE GRAN PERCENT AUTO 1 % (0-1); LYMPHOCYTES PERCENT AUTO 4 % (21-46); MONOCYTES ABSOLUTE AUTO 0.06 K/mm3 (0.16-1.47); MONOCYTES PERCENT AUTO 1 % (4-13); Mean Corpuscular HGB 25.9 pg (26.0-34.0); Mean Corpuscular HGB Conc 30.9 g/dL (31.5-36.5); Mean Corpuscular Volume 84 fL (80-100); Mean Platelet Volume 9.7 fL (9.1-12.4); NEUTROPHILS ABSOLUTE AUTO 4.82 K/mm3 (1.96-9.15); NEUTROPHILS PERCENT AUTO 94 % (41-73); Platelet Count 203 K/mm3 (150-400); RDW Coefficient Variation 16.7 % (11.7-14.2); RDW Standard Deviation 50.3 fL (35.1-46.3); Red Blood Cell Count 3.94 M/mm3 (4.30-5.90); White Blood Cell Count 5.13 K/mm3 (4.00-11.30)
[2020-05-27 04:55] LABS: Anion Gap 7 mmol/L (6-16); Blood Urea Nitrogen 17 mg/dL (8-24); Bun/Creatinine Ratio 19.9 (12.0-20.0); CO2, Blood 27 mmol/L (21-32); Calcium, Blood 7.8 mg/dL (8.5-10.1); Chloride, Blood 109 mmol/L (98-108); Creatinine, Blood 0.85 mg/dL (0.60-1.20); Glomerular Filtration Rate >60 (60-); Glucose, Blood 204 mg/dL (70-99); Magnesium, Blood 2.1 mg/dL (1.6-2.4); Phosphorus, Blood 3.7 mg/dL (2.5-4.9); Potassium, Blood 4.6 mmol/L (3.5-5.5); Sodium, Blood 143 mmol/L (136-145)
--- NOTE | 2020-05-27 06:26 | NUR ---
PT HAS BEEN MEDICATED SEVERAL TIMES WITH 50 MCG FENTANYL, AND 2 MG ATIVAN FOR VENT TOLERANCE. GOOD RESULTS. CURRENTLY AC 14, Tv500, FIO2 40%, PEEP 5. MAINTAINS SATURATIONS 89-92. ETT SUCTIONING NO LONGER RETURNS DORIS BLOOD. RED SECRETIONS MORE TOWARDS OLDER BLOOD. HAVE HAD A DECREASE IN SECRETIONS. BLOOD PRESSURES MAINTAIN WNL WITH MAP > 60 WITH LEVOPHED AT 1 MCG. HAVE MADE SEVERAL UNSUCCESSFUL ATTEMPTS TO WEAN LEVOPHED OFF. TUBE FEEDING AT GOAL OF 45 ML PER HOUR OF VITAL HIGH PROTEIN. RESIDUAL CHECKS FROM OGT WITH CONSISTANT < 20 ML. THIS REINSTILLED. DRESSING CHANGE DONE TO PICC LINE. NO ISSUES TO NOTE. WILL CONTINUE TO MONITOR PT, AND WILL REPORT OFF TO ONCOMING RN.
--- NOTE | 2020-05-27 08:38 | NUR ---
ASSUMED CARE RECEIVED REPORT FROM RACIEL COOPER. PT INTUBATED WITH 8.0 ETT, 24 @ TEETH, ON VENT @ AC 14/500/5/40%. CURRENT GTTPs: PROPOFOL 55 MCG/KG/MIN, PRECEDEX 0.7 MCG/KG/HR, AND LEVOPHED 1 MCG/MIN. PATENT GOMES TEMP DRAINING YELLOW URINE. SCDs IN PLACE. SWB RESTRAINTS SECURED TO PT AND BED. VITAL HIGH PROTEIN TF INFUSING VIA OG TUBE (SECURED TO ETT), INFUSING 45 ML/HR, GOAL RATE, WITH 30 ML Q4H WATER FLUSHES. PICC LINE SITE IS CDI, EXPOSING 6 CM, WHICH MATCHES WHATS IN THE CHARTING. BED LOW AND LOCKED. PT WAS ON RIGHT SIDE, BUT NOW IS SUPINE - HOB 30 DEGREES, LIMBS ELEVATED. VITALS STABLE, MAP > 65, SINUS RHYTHM, RATE IN 80s. TEMP 99.0F. RR 28. SPO2 94%.
--- NOTE | 2020-05-27 10:43 | NUR ---
SUMMARY: ADMIT: 05/24/20 05/27/20- PER CHART REVIEW WITH DR. MCKINNON, PT HAS VERY POOR PROGNOSIS. PARENTS HAVE COME TO VISIT PT AND SPOKE WITH PALLATIVE CARE AND DR. MCKINNON. PT HAD A TRIAL OF TRYING TO BE LESS SEDATED, HE BECAME VERY AGITATED, PULLING AT LINES, TRYING TO GET OUR OF BED. HE WAS RESEDATED. PICC LINE PLACE DUE TO INFLAMMATION AROUND IV SITES. PER PALLATIVE CARE NOTE AND DR. MCKINNON, PARENTS ARE CONSIDERING COMFORT CARE. PT HAS HAD ELEVATED TEMPERATURE TODAY. -KJW
--- NOTE | 2020-05-27 19:23 | NUR ---
SHIFT SUMMARY ACUTE EVENT: AT ~2236-3054 PT STARTED DESATing AND THE VENTILATOR WAS ALARMING DUE TO HIGH PEAK PRESSURES, THIS RN WALKED INTO THE ROOM AND THE PT WAS USING ACCESSORY MUSCLES TO BREATHE AND IT LOOKED LABORED. HE WAS COUGHING UP COPIOUS AMOUNTS OF RED BLOODY SPUTUM. ASIDE SPO2 DROPPING TO LOW-MID 80s PT's VITALS WERE NORMAL. PT APPEARED TO BE IN DISTRESS, AND WAS NO LONGER COUGHING UP ANYTHING, SO 50 MCG OF FENTANYL WAS GIVEN, AND FIO2 WAS TURNED UP TO 100% PER BARRETT, RT - AND PT EVENTUALLY BECAME CALM, SEDATED, AND TOLERATING THE VENT, AND SPO2 INCREASED TO 90s. DR. BALDERRAMA AWARE OF EVERYTHING. DR. BALDERRAMA TALKED WITH THE MOM, AND DISCUSSED THE PT's POOR PROGNOSIS, THE PLAN IS TO HAVE PALLIATIVE CARE CALL THE MOM AND DAD IN THE MORNING (TOMORROW, 05/29/20) TO SET UP A TIME FOR EXTUBATION. PT IS CURRENTLY INTUBATED WITH 8.0 ETT, 24 AT GUMS, AC14/500/5/90%. PROPOFOL INFUSING AT 50 MCG/KG/MIN, AND PRECEDEX AT 0.7 MCG/KG/HR. LEVOPHED OFF SINCE 1130. MAP HAS BEEN MAINTAINED OVER 65 T/O SHIFT. RESIDUALS MINIMAL. TF INFUSING AT GOAL RATE, VITAL HIGH PROTEIN, NEW BOX SPIKED. TEMP GOMES SHOWING ADEQUATE URINE OUTPUT, AND IS YELLOW WITH ORANGISH SEDIMENT, AND IT IS TURNING A LITTLE GREEN POSSIBLY FROM PROPOFOL. SEE PREVIOUS NOTES, AND ASSESSMENT IN THE INTERVENTIONS FOR IN DEPTH NEURO ASSESSMENT. PT CURRENTLY IS CPOT OF 0, AND IS COMFORTABLY SEDATED. BED LOW AND LOCKED. SWB RESTRAINTS SECURED TO BED AND PT. SCDs IN PLACE.
--- NOTE | 2020-05-27 21:29 | NUR ---
Care Assumed 1900 Pt intubated and sedated. Propofol at 65 mcg/kg/min at start of shift decreased to 60 mcg/kg/min. Precedex gtt 0.7 mcg/kg/hr, infusing via PICC to GUICHO. Vent settings of AC 14/500/5/80%. FIO2 decreased to 75%, pts spo2 97%. Tolerating decreased fio2 well. Pt does not follow commands or open eyes, no movement noted, grimacing during turns/oral care. Vital high protein at goal of 45 ml/hr, bowel tones hypoactive. Temp lee in place with 225 mls of yellow sedimented urine, temp of 99.5. NSR. SBP 90-100, MAP > 65. Will continue to monitor.
--- NOTE | 2020-05-28 00:20 | NUR ---
Update Fio2 decreased to 60%, AC 14/500/5/60%, SPO2 > 60%. Propofol gtt 55 mcg/kg/min. Pts vent circut tubing has been changed due to patient having copious amount of thin bloody frothy secreations. Pt tolerated well. Pt continues to only grimace during oral care, not opening eyes or any other movement.
--- NOTE | 2020-05-28 05:50 | NUR ---
Shift summary Pt intubated and sedated. Propofol at 55 mcg/kg/min, precedex 0.7 mcg/kg/hr, infusing via PICC to GUICHO. Vent settings of AC 14/500/5/45%, tolerating decreased fio2 well, spo2 > 90%. Thin bloody frothy secretion's present during suctioning. VSS. NSR. Temp lee in place, T-max of 100.4. During morning turns, pt attempted to open eyes but not following directions or movement. Grimacing and coughing, treated with Fentanyl 50 mcg/ml. VHP at goal of 45ml/hr. Will report to oncoming shift.
[2020-05-28 05:56] LABS: Anion Gap 6 mmol/L (6-16); Blood Urea Nitrogen 27 mg/dL (8-24); Bun/Creatinine Ratio 33.4 (12.0-20.0); CO2, Blood 30 mmol/L (21-32); Calcium, Blood 7.9 mg/dL (8.5-10.1); Chloride, Blood 108 mmol/L (98-108); Creatinine, Blood 0.81 mg/dL (0.60-1.20); Glomerular Filtration Rate >60 (60-); Glucose, Blood 257 mg/dL (70-99); Magnesium, Blood 2.4 mg/dL (1.6-2.4); Phosphorus, Blood 2.7 mg/dL (2.5-4.9); Potassium, Blood 4.9 mmol/L (3.5-5.5); Sodium, Blood 144 mmol/L (136-145)
--- NOTE | 2020-05-28 08:30 | NUR ---
ASSUMED CARE: REPORT RECEIVED FROM LORNA Louis RN. ASSUMED CARE OF THIS PT AT APPROX 0700. ON ASSESSMENT, THE PT IS SEDATED W/ PROPOFOL & PRECEDEX, RESTING QUIETLY. INTUBATED W/ VENT SETTINGS: AC 14/500/5/45%, O2 SATS > 92%. MONITOR SHOWS SR W/ HR 60s, BP STABLE. OGT W/ VHP INFUSING AT GOAL RATE OF 45 ML/HR, LOW RESIDUALS - SEE I&O. TEMP GOMES PATENT/ DRAINING DARK YELLOW URINE. SKIN CONDITION OVERALL CDI, Q2H REPOSITIONING TO MAINTAIN SKIN INTEGRITY. POC IS POSSIBLE EXTUBATION & TRANSITION TO CC MEASURES. EAN Woo, PALLIATIVE CARE RN IS SEEING THE PT & HAS BEEN COMMUNICATING W/ PT's FAMILY. WILL CONTINUE TO MONITOR & UPDATE NEEDED.
--- NOTE | 2020-05-28 11:23 | NUR ---
Pt resting in bed and is intubated. Discussed case with Bedside RN Patricia. Pt showing no improvement today. Called and spoke with Pt's mother Ashly. Engaged in therapeutic conversation regarding goals of car. Ashly reports plan for herself, Pt's father, and Pt's brother to visit afternoon. She reports being in agreement with plan for extubation and comfort care today. Discussed case with Dr Bhakta and Dr Gomez. Palliative Care will F/U when family arrives.
--- NOTE | 2020-05-28 13:00 | NUR ---
DR COLLINS: PROVIDER HAS BEEN AT BEDSIDE. HE IS AGREEABLE TO PRIOR PROVIDER's PLAN REGARDING WITHDRAWAL OF CARE AFTER FAMILY HAS SEEN THE PT & CONFIRMED THAT THIS IS WHAT THEY WISH TO DO. NO OTHER CHANGES AT THIS TIME. WILL NOTIFY PROVIDER WHEN PT's FAMILY HAS ARRIVED.
--- NOTE | 2020-05-28 16:17 | NUR ---
Spiritual care note: Present with family throughout physician explaination of dire prognosis. Mom is very concerned with John's suffering. John's dad, mom, and brother present. They decided to withdraw of aggressive treatements to allow a natural passing. I stayed with family through extubation. Prayer at bedside for peace. John appears restless and this is very upsetting to mom. Continued comfort and emotional support will be beneficial.
--- NOTE | 2020-05-28 17:30 | NUR ---
UPDATE / EXTUBATION: DR CHAMORRO, EAN Woo, PALLIATIVE CARE RN, & RHONDA Zhou, RV SERVICE TECHNICIAN, HAVE BEEN AT BEDSIDE THIS AFTERNOON W/ THIS PT's DAD, MOM & BROTHER. THE DECISION HAS BEEN MADE TO TRANSITION THIS PT TO COMFORT CARE. HIS MOTHER IS VERY CONCERNED W/ THE POSSIBILITY OF SUFFERING AFTER EXTUBATION & REQUESTS THAT THE PT BE PREMEDICATED BEFORE ETT REMOVED. PT HAS BEEN PREMEDICATED W/ ATIVAN & MORPHINE PER EMAR. EXTUBATED AT 1540 & PLACED INITIALLY ON 4L NC. NC REMOVED SHORTLY AFTER PT BECAME AGITATED & ATTEMPTED TO REMOVE CANNULA HIMSELF. PT IS EXTREMELY ANXIOUS, AGITATED & RESTLESS DESPITE MEDICATION ADMIN PER EMAR. THIS RN HAS SPOKEN W/ DR CHAMORRO ABOUT THIS ISSUE & HE STS IT IS OKAY TO INCREASE PT's PRECEDEX TO 1.4 MCG/KG/HR & HAS ADJUSTED MORPHINE, ATIVAN & HALDOL DOSING. TUBE BUILDING MACHINE OPERATOR PER EMAR W/ RESOLUTION OF PT's AGITATION, HE IS NOW RESTING QUIETLY & ONLY BECOMES RESTLESS/ ANXIOUS INFREQUENTLY.
--- NOTE | 2020-05-28 18:40 | NUR ---
Supportive Visit Family has elected to pursue comfort care for Pt. Dr Gomez discussed condition and prognosis with family. Comfort care orders placed per V/O from Dr Gomez. Multiple supportive visits placed. Engaged in therapeutic listening as Pt's mother Ashly discusses different life events with Pt. Continued therapeutic listening and answered qeustions. This RN provided support as needed for family. Discussed case with Bedside RN Patricia. New orders received from Dr Gomez for increased frequency of comfort medications. Palliative Care will remain available.
--- NOTE | 2020-05-28 18:44 | NUR ---
SHIFT SUMMARY: NO ACUTE CHANGES SINCE PRIOR UPDATES. PT REMAINS ON COMFORT MEASURES & IS DIFFICULT TO PROVIDE ADEQUATE ANALGESIA FOR. RESPIRATIONS ARE PROFOUNDLY LABORED & PT HAS AUDIBLE SECRETIONS IN UPPER AIRWAY. SCOPALAMINE PATCH BEHIND L EAR & ATROPINE DROPS SL PER EMAR. VS MONITORING D/C'd. PT's FAMILY REMAINS AT BEDSIDE & IS SUPPORTIVE IN CARE. PT's MOTHER BECOMES UPSET W/ STAFF WHEN THE PT IS RESTLESS OR STRUGGLING TO BREATH. REPOSITIONING HAS UPSET THE PT & MADE HIM MORE AGITATED BUT HAS BEEN COMPLETED TOLERATED THIS AFTERNOON. WILL CONTINUE TO MONITOR & REPORT OFF TO ONCOMING RN.
--- NOTE | 2020-05-28 19:30 | NUR ---
CARE ASSUMED 1899 RECIEVED REPORT FROM ADONIS RN AT BEDSIDE. PT IN BED AND FAMILY AT SIDE. PTS RR IRREGULAR. PT NOT RESPONSIVE, APPEARS PALE AND CYANOTIC. FATHER, MOTHER, AND BROTHER AT BEDSIDE. TREATED PER EMAR FOR PAIN. COMFORT MEASURES IMPLAMENTED. PRECEDEX GTT 1.4 MCG/KG/HR, INFUSING VIA GUICHO PICC. GOMES IN PLACE.
--- NOTE | 2020-05-28 21:32 | NUR ---
FINAL DISCHARGE 1950 FAMILY AT BEDSIDE. PATIENTS TIME OF 1948. NO RESPIRATIONS AND APICAL HEARTBEAT NOTED. ALL PHYSICANS CALLING SERVICES NOTIFIED. SPOKE TO DR. MCGUIRE AND UPDATED ON PTS TIME OF . PTS BELONGINGS SENT HOME WITH FAMILY. LUIS M GOMES REMOVED. SEE FINAL DISCHARGE PAPERWORK.
--- NOTE | 2020-05-29 00:35 | NUR ---
Update Linda called and awaiting on transfer.
== END 2020-05-28 19:50 | DRG 208 ==
LOC: ER 17:24 → ICUW 23:17
PROVIDERS: Emergency Medicine; Internal Medicine Pulmonary Disease; Nurse Practitioner Acute Care; ADMIT Internal Medicine
PROC: 0BH18EZ Insertion of Endotracheal Airway into Trachea, Via Natural or Artificial Opening Endoscopic (ICD-10-PCS; 2020-05-24)
PROC: 5A1945Z Respiratory Ventilation, 24-96 Consecutive Hours (ICD-10-PCS; 2020-05-24)
PROC: 02HV33Z Insertion of Infusion Device into Superior Vena Cava, Percutaneous Approach (ICD-10-PCS; principal; 2020-05-26)
PROC: 3E043XZ Introduction of Vasopressor into Central Vein, Percutaneous Approach (ICD-10-PCS; 2020-05-26)
DX: C34.92 Malignant neoplasm of unspecified part of left bronchus or lung (principal); J96.01 Acute respiratory failure with hypoxia; J18.9 Pneumonia, unspecified organism; J96.02 Acute respiratory failure with hypercapnia; E87.2 Acidosis; J98.11 Atelectasis; I50.32 Chronic diastolic (congestive) heart failure; Z51.5 Encounter for palliative care; Z87.891 Personal history of nicotine dependence; I27.20 Pulmonary hypertension, unspecified; I11.0 Hypertensive heart disease with heart failure; I50.810 Right heart failure, unspecified; Z66 Do not resuscitate; Z20.822 Contact with and (suspected) exposure to COVID-19; Z78.1 Physical restraint status; R57.0 Cardiogenic shock
CPT/HCPCS: 0202U; 31720; 36415; 36569; 36600; 51702; 71045; 71260; 80048; 80053; 81001; 82803; 82947; 83605; 83735; 83880; 84100; 84145; 84484; 85025; 87040; 93005; 93010; 93306; 94002; 94003; 94640; 96360; 96361-59; 96365-59; 96367-59; 96375-59; 99285-25; A9270; C1751; J0330; J0456; J0696; J1630; J1650; J2060; J2270; J2704; J2920; J3010; J7030; J7050; J7060; Q9967